=== PATIENT | female | born 1980 | race Caucasian/White ===

== ENCOUNTER 2023-02-20 14:44 | Inpatient (IN) | payer MEDICAID ==
[~2023-02-20] VITALS: Ht 188 cm; Wt 122.3 kg
--- NOTE | 2023-02-20 15:10 | NUR ---
PT ARRIVED DIRECT ADMIT FROM . PT ADMITTED FOR RIGHT FOOT OSTEOMYELITIS AND SURGICAL PROCEDURE TOMORROW. PT ALERT AND ORIENTED X 3, C/O PAIN IN RIGHT FOOT AT 4/10 ON PAIN SCALE. LUNGS CLEAR AND BS ACTIVE. PT AMBULATES WELL TO BATHROOM FOR TOILETING. PT ORIENTED TO ROOM AND CALL LIGHT. SAFETY MEASURES IN PLACE. WILL CONTIUE TO MONITOR PT.
[2023-02-20] MEDS ORDERED: OXYCODO-APAP1 TA2 PO (15:37)
[2023-02-20] MEDS ORDERED: PROTONIX40 M2 PO (15:38)
[2023-02-20] MEDS ORDERED: LISINOPRIL5 MG PO (15:38)
[2023-02-20 15:39] VITALS: BP 123/85
[2023-02-20] MEDS ORDERED: NOVOLIN R100 UNIT/1 SC (15:41)
[2023-02-20] MEDS ORDERED: LYRICA150 M1 (15:42)
[2023-02-20] MEDS ORDERED: NEURONTIN300 MG PO (15:43)
[2023-02-20] MEDS ORDERED: LEXAPRO20 MG PO (15:44)
[2023-02-20] MEDS ORDERED: ABILIFY10 MG PO (15:45)
[2023-02-20 15:46] LABS: BASO% 0.3 % (0-3); EOS% 1.2 % (0-8); HEMATOCRIT 43.7 % (37.0-47.0); HEMOGLOBIN 13.5 g/dl (12.0-16.0); IMMATURE GRANULOCYTES 0.2 % (0.0-5.0); MEAN CELL VOLUME 93.4 fL CALC (80.0-100.0); MEAN CORPUSCULAR HGB 28.8 pG CALC (26.0-32.0); MEAN CORPUSCULAR HGB CONC 30.9 g/dL CAL (32.0-36.0); MONO% 6.7 % (2-13); NEUT# 6.78 thou/uL (2.00-7.15); NEUT% 64.6 % (42-76); RED BLOOD COUNT 4.68 mill/uL (4.20-5.60); RED CELL DISTRI WIDTH 14.1 % (11.5-15.5)
[2023-02-20 16:00] LABS: ALBUMIN 4.6 g/dL (3.2-5.0); ALKALINE PHOSPHATASE 81 u/l (38-126); ANION GAP 10 (6-22 (CALC)); BILIRUBIN, TOTAL 0.3 mg/dL (0.02-1.3); BUN 17 mg/dL (7-17); BUN/CREATININE RATIO 17 (12-20 (CALC)); CARBON DIOXIDE 27 mmol/l (22-30); CHLORIDE 102 mmol/l (95-108); GFR FOR AFR.AMER. > 60 ML/MIN (>=60 (CALC)); GFR OTHER RACES 60 ML/MIN (>=60 (CALC)); POTASSIUM 3.9 mmol/l (3.5-5.1); SGOT/AST 21 u/l (14-36); SODIUM 136 mmol/l (137-146)
--- NOTE | 2023-02-20 16:00 | NUR ---
PT OUT OF ROOM TO RADIOLOGY FOR CXR. PT HAS NO CHANGE IN STATUS AT THIS TIME.
[2023-02-20 19:02] VITALS: BP 131/71
--- NOTE | 2023-02-20 20:00 | NUR ---
RECEIVED REPORT FROM NURSE JOS, PATIENT ALERT [facility]IN[facility] AMBULATORY, PATIENT SALINE LOCK NOTED ON LFA G 22SALINE LOCK PATENT FLUSHES WELL, LUNG SOUNDS CLEAR ACTIVE BOWELS OUNDS LBM 02/20, NOTED SCAB AT THE BOTTOM OF RT FOOT, SCANT AMOUNT PURULENT DRAINAGE NOTED WHEN SQUEEZE, CALL LIGHT IN REACH.
--- NOTE | 2023-02-21 | NUR ---
PATIENT ON NPO AT THIS TIME, FOOD AND FLUIDS REMOVED AT BEDSIDE.
[2023-02-21 04:01] VITALS: BP 109/59
--- NOTE | 2023-02-21 04:24 | NUR ---
PATIENT RESTING IN BED, REMAINS ON NPO, DENIES PAIN AT THIS TIME, CALL LIGHT IN REACH.
[2023-02-21 06:40] VITALS: BP 125/73
--- NOTE | 2023-02-21 08:00 | NUR ---
PT LAYING IN BED RESTING, ALERT AND ORIENTED X3. PT HAS C/O PAIN AT 5/10 ON PAIN SCALE, PER DR. MAHONEY HOLD PAIN MEDICATIONS UNTIL AFTER SURGERY, PT IS NPO AT THIS ITME. IV TO LFA CLEAN AND INTACT. PT AMBULATES WELL TO BATHROOM FOR TOILETING NEEDS. PT HAS CALL LIGHT WITHIN REACH
--- NOTE | 2023-02-21 10:30 | NUR ---
PT TRANSFERED DOWN TO OR BY OR NURSE. CONSENTS FOR PROCEDURE SIGNED.
--- NOTE | 2023-02-21 11:20 | NUR ---
patient voided x2 before going to surgery.
--- NOTE | 2023-02-21 13:43 | NUR ---
S: MILAGROS RIOJAS is a 42 F who presents with foot osteomyelitis. She has a history of . All medications in patient's chart were reviewed. O: VS: BP 129/70mmHg, P 73, RR 14,T 98.1 W 122.3kg, HT 74in, Scr= 1.0, CrCl= 100ml/min A: Wound culture is pending P: Vancomycin ordered for pharmacy to dose. Start Vancomycin 1250mg IV Q8H. Vancomycin trough is drawn before the 4th dose on 02/22/23 @ 1400. Vancomycin goal trough is between 10-20 mcg/ml. Pharmacy will follow and or advise on antibiotics use as needed.
--- NOTE | 2023-02-21 14:20 | NUR ---
PT BACK TO RM 268 FROM OR POST I&D OF RIGHT FOOT AND REMOVAL OF HARDWARE. PT HAS C/O MINIMAL PAIN AT 3/10 ON PAIN SCALE AT THIS TIME. IV SIRE TO LFA INTACT WITH NS INFUSING. DRESSING TO RIGHT FOOT CLEAN AND INTACT WITH NO DRAINAGE NOTED TO THE OUTER BANDAGE. PT HAS CALL LIGHT WITHIN REACH AND INSTRUCTED TO CALL NURSE FOR HELP WITH TOILETING. VS STABLE AND WILL CONTINUE TO MONITOR.
--- NOTE | 2023-02-21 16:20 | NUR ---
PT IN ROOM UP TO BATHROOM. PT HAS C/O PAIN IN BACK AND RIGHT FOOT, WILL MEDICATE WITH PRN MEDICATION. CALL LIGHT WITHIN REACH. BANDAGE TO RIGHT FOOT CLEAN AND INTACT.
[2023-02-21 19:00] VITALS: BP 124/56
[2023-02-21 19:18] VITALS: BP 124/56
--- NOTE | 2023-02-21 19:45 | NUR ---
PATIENT RESTING IN BED AT THIS TIME-AWAKE ALERT AND HAVING SEVERE RIGHT FOOT PAIN. POST-OP TODAY-TOO EARLY FOR PO PAIN MEDS AT THIS TIME AND CALL PLACED TO DR. LUZ. MESSAGE WAS LEFT AND PATIENT IS AWARE. DRESSING TO RIGHT FOOT INTACT AND SECURED WITH PONCE WRAP. CMS TO RIGHT TOES ARE WNL. ENCOURAGED PATIENT TO KEEP RIGHT FOOT ELEVATED ON PILLOWS. VERBALIZES UNDERSTANDING. IV SITE TO LEFT FOREARM INTACT. PATIENT STATES THAT SHE IS VOIDING WITHOUT ANY DIFFICULTY SINCE SURGERY. SAFETY PRECAUTIONS REINFORCED. CALL LIGHT IN REACH. WILL CONT TO MONITOR.
--- NOTE | 2023-02-21 21:00 | NUR ---
SPOKE WITH DR. LUZ AND NEW ORDER RECEIVED. MEDICATED PATIENT WITH DILAUDID 1MG IVP FOR SEVERE BREAKTHRU PAIN. MEDICATED WITH ROXICODONE 15MG PO FOR SEVERE PAIN. RESTING IN BED WITH RIGHT FOOT ELEVATED ON PILLOWS. APPETITE FOR DINNER WAS GOOD-TOLERATE WELL. PATIENT STATES THAT SHE DID HAVE A BM TONIGHT AND HER STOMACH FEELS BETTER. CALL LIGHT IN REACH. SAFETY PRECAUTIONS REINFORCED. WILL CONT TO MONITOR.
--- NOTE | 2023-02-22 00:30 | NUR ---
VANCO INFUSED ORDERED VIA LEFT FOREARM IV SITE. MEDICATED FOR SEVERE RIGHT FOOT POST-OP PAIN WITH DILAUDID ORDERED. RIGHT FOOT ELEVATED ON PILLOWS. DRESSING REMAINS CDI AND SECURED WITH PONCE WRAP. CALL LIGHT IN REACH. WILL CONT TO MONITOR.
--- NOTE | 2023-02-22 02:22 | NUR ---
PATIENT SITTING ON THE SIDE OF THE BED-MEDICATED FOR NAUSEA WITH ZOFRAN 4MG IVP ORDERED FOR NAUSEA. MEDICATED WITH BENEDRYL PER PATIENT REQUEST FOR SLEEP. CALL LIGHT IN REACH.WILL CONT TO MONITOR.
[2023-02-22 03:44] VITALS: BP 105/43
--- NOTE | 2023-02-22 04:51 | NUR ---
PATIENT POSITIONED ON LEFT SIDE WITH RIGHT LE ELEVATED ON PILLOWS. EYES ARE CLOSED AND RESPS ARE EVEN AND UNLABORED. CALL LIGHT IN REACH. WILL CONT TO MONITOR.
[2023-02-22 04:54] LABS: BASO% 0.2 % (0-3); EOS% 1.8 % (0-8); IMMATURE GRANULOCYTES 0.5 % (0.0-5.0); LYMPH% 34.1 % (15-41); MEAN CELL VOLUME 95.1 fL CALC (80.0-100.0); MEAN CORPUSCULAR HGB 28.5 pG CALC (26.0-32.0); MONO% 7.7 % (2-13); NEUT# 3.09 thou/uL (2.00-7.15); NEUT% 55.7 % (42-76); RED BLOOD COUNT 3.89 mill/uL (4.20-5.60)
[2023-02-22 05:03] LABS: ALKALINE PHOSPHATASE 63 u/l (38-126); ANION GAP 9 (6-22 (CALC)); BILIRUBIN, TOTAL 0.2 mg/dL (0.02-1.3); BUN 12 mg/dL (7-17); BUN/CREATININE RATIO 16 (12-20 (CALC)); CARBON DIOXIDE 26 mmol/l (22-30); CHLORIDE 106 mmol/l (95-108); CREATININE 0.7 mg/dL (0.5-1.0); GFR FOR AFR.AMER. > 60 ML/MIN (>=60 (CALC)); GFR OTHER RACES > 60 ML/MIN (>=60 (CALC)); POTASSIUM 4.2 mmol/l (3.5-5.1); SGOT/AST 21 u/l (14-36); SODIUM 137 mmol/l (137-146)
[2023-02-22 05:07] LABS: ALBUMIN 3.5 g/dL (3.2-5.0); TOTAL PROTEIN 6.1 g/dL (6.3-8.2)
[2023-02-22 05:11] LABS: HEMOGLOBIN 11.1 g/dl (12.0-16.0)
[2023-02-22 06:30] VITALS: BP 103/47
--- NOTE | 2023-02-22 08:00 | NUR ---
PT ALERT AMD ORIENTED X 3 , IN BED EATING BREAKFAST. IV SITE TO THE RFA SLIGHTLY RED AT SITE BUT FLUSHING WELL. PT AMBULATES WELL TO THE BATHROOM FOR ALL TOILETING NEEDS. DRESSING TO RIGHT FOOT CLEAN AND INTACT WITH NO DRAINAGE NOTED TO OUTER BANDAGE. RIGHT FOOT ELEVATED ON 2 PILLOWS AND WERAING BOOT WHEN OUT OF BED. PT HAS CALL LIGHT WITHIN REACH.
[2023-02-22 10:33] VITALS: BP 145/79
[2023-02-22] MEDS ORDERED: OXYCODO-APAP1 TA2 PO (11:48)
[2023-02-22] MEDS ORDERED: DOXYCYCLINE HY100 MG PO (11:56)
--- NOTE | 2023-02-22 12:00 | NUR ---
PT SITTING UP IN BED RESTING , EATING LUNCH. PT ALERT AND ORIENTED X3 DRESSED AND READY FOR DISCHARGE. IV TO LEFT FORARM REMOVED, WITH CATHERTER INTACT. NO CHANGE IN STATUS. CALLL LIGHT WITHIN REACH
--- NOTE | 2023-02-22 13:19 | NUR ---
Discharge instructions given. Patient verbalizes understanding of same. Discharged in stable condition via Wheelchair to Home with friend. All belongings sent with pt.
== END 2023-02-22 13:15 | disposition home or self-care (01) | DRG 504 ==
LOC: MS2 14:44
PROVIDERS: Nurse Practitioner Family; ADMIT Internal Medicine; ATTEND Internal Medicine
PROC: 0SPM04Z Removal of Internal Fixation Device from Right Metatarsal-Phalangeal Joint, Open Approach (ICD-10-PCS; principal; 2023-02-21)
PROC: 0QBN0ZZ Excision of Right Metatarsal, Open Approach (ICD-10-PCS; 2023-02-21)
PROC: 0QBQ0ZZ Excision of Right Toe Phalanx, Open Approach (ICD-10-PCS; 2023-02-21)
DX: T84.7XXA Infection and inflammatory reaction due to other internal orthopedic prosthetic devices, implants and grafts, initial encounter (principal); L03.115 Cellulitis of right lower limb; M86.671 Other chronic osteomyelitis, right ankle and foot; T84.418A Breakdown (mechanical) of other internal orthopedic devices, implants and grafts, initial encounter; E11.42 Type 2 diabetes mellitus with diabetic polyneuropathy; M20.21 Hallux rigidus, right foot; I10 Essential (primary) hypertension; M48.00 Spinal stenosis, site unspecified; M79.7 Fibromyalgia; T88.7XXA Unspecified adverse effect of drug or medicament, initial encounter; T36.8X5A Adverse effect of other systemic antibiotics, initial encounter; Y83.1 Surgical operation with implant of artificial internal device as the cause of abnormal reaction of the patient, or of later complication, without mention of misadventure at the time of the procedure; Z79.4 Long term (current) use of insulin; Z88.0 Allergy status to penicillin; Z20.822 Contact with and (suspected) exposure to COVID-19
CPT/HCPCS: J0131; J3370

== ENCOUNTER 2024-04-04 13:24 | Inpatient (IN) | payer MEDICAID ==
[~2024-04-04] VITALS: Ht 188 cm; Wt 116.8 kg
[~2024-04-04 13:24] MED LIST: ABILIFY10 MG PO; DOXYCYCLINE HY100 MG PO; LEXAPRO20 MG PO; LISINOPRIL5 MG PO; LYRICA150 M1; NEURONTIN300 MG PO; NOVOLIN R100 UNIT/1 SC; OXYCODO-APAP1 TA2 PO; PROTONIX40 M2 PO
--- NOTE | 2024-04-04 14:00 | NUR ---
PATIENT DIRECT ADMIT FOR RIGHT ROOT CELLULITIES. PATIENT ARRIVED TO FLOOR VIA WHEELCHAIR. PATIENT A/OX4, PATIENT C/O PAIN TO RIGHT FOOT, PATIENT NO S/S RESP DISTRESS PATIENT ON ROOM AIR. PATIENT WOUND TO RIGHT FOOT HAD TRACE EDEMA AND REDDNESS. PATIENT HOME MED REVIEWED NOTIFIED. PATIENT VOIDED AND LAST BM TODAY
[2024-04-04 14:02] VITALS: BP 121/65
[2024-04-04 14:58] LABS: ALKALINE PHOSPHATASE 62 u/l (38-126); ANION GAP 7 (6-22 (CALC)); BUN 10 mg/dL (7-17); BUN/CREATININE RATIO 13 (12-20 (CALC)); CARBON DIOXIDE 23 mmol/l (22-30); CHLORIDE 109 mmol/l (95-108); CREATININE 0.8 mg/dL (0.5-1.0); ESTIMATED GFR 93 ML/MIN (>=90 (CALC)); POTASSIUM 4.2 mmol/l (3.5-5.1); SGOT/AST 20 u/l (14-36); SODIUM 135 mmol/l (137-146); TOTAL PROTEIN 7.2 g/dL (6.3-8.2)
[2024-04-04 15:07] VITALS: BP 121/65
[2024-04-04 15:14] LABS: BETA-HCG, QUANT(RESULT NUMBER) <2 mIU/mL
[2024-04-04] MEDS ORDERED: ACETAMINOPHEN 325 MG/TAB PO PRN (15:30)
[2024-04-04] MEDS ORDERED: SODIUM CHLORIDE 0.9% 1,000 ML IV PRN (15:30)
[2024-04-04] MEDS ORDERED: MAGNESIUM HYDROXIDE 30 ML UDC PO PRN (15:30)
[2024-04-04 15:31] LABS: BILIRUBIN, TOTAL 0.4 mg/dL (0.02-1.3)
[2024-04-04] MEDS ORDERED: DEXTROSE 250 ML IV PRN ×2 (15:45→20:00)
[2024-04-04] MEDS ORDERED: CLARIFY DOSE PO PRN (15:45)
[2024-04-04] MEDS ORDERED: oxyCODONE 10MG/APAP 325 MG 1 COMBO TAB PO PRN (15:50)
[2024-04-04] MEDS ORDERED: BACLOFEN10 MG PO (16:32)
[2024-04-04] MEDS ORDERED: BACLOFEN 10 MG/TAB PO PRN (17:10)
[2024-04-04] MEDS ORDERED: INSULIN REGULAR (HUMAN) 100 UNIT/ML INJ SC SCH (17:30)
[2024-04-04] MEDS ORDERED: MORPHINE SULFATE 4 MG/ML VIAL IV PRN (19:55)
[2024-04-04] MEDS ORDERED: VANCOMYCIN HCL 1 GM in SODIUM CHLORIDE 0.9% 250 ML IV SCH (20:00)
--- NOTE | 2024-04-04 20:00 | NUR ---
RECEIVED REPORT FROM NURSE HOLLIS. PATIENT SITTING IN BED, C/O PAIN ON RT FOOT, WILL NOTIFY ,PATIENT IV ON LFA G 20 PATENT FLUSHES WELL, PATINET DRESSING ON RT FOOT CDI, PATIENT EDUCATED NPO AFTER MIDNIGHT VERBALIZED UNDERSTATING.
[2024-04-04] MEDS ORDERED: Zaleplon 5 MG/CAP PO PRN (20:05)
[2024-04-04] MEDS ORDERED: HYDROmorphone HCL 2 MG/AMP IV PRN (20:10)
[2024-04-04] MEDS ORDERED: PREGABALIN 50 MG/CAP PO SCH (21:00)
[2024-04-04] MEDS ORDERED: INSULIN LISPRO 100 UNITS/ML ML SC SCH (21:00)
[2024-04-04] MEDS ORDERED: GABAPENTIN 300 MG/CAP PO SCH (21:00)
[2024-04-04 22:03] VITALS: BP 106/71
[2024-04-05] VITALS (9 sets, daily range): BP systolic 96–113; BP diastolic 36–51
--- NOTE | 2024-04-05 | NUR ---
FOOD AND FLUIDS REMOVED, PATIENT NOPW NPO, PATIENT VERBALIZED UNDERSTANDING, PATINET NOT IN DISTRESS, CALL LIGHT IN REACHED.
--- NOTE | 2024-04-05 04:15 | NUR ---
PATIENT RESTING WITH EYES CLOSED, TECH IN ROOM, PATINET NOT IN DISTRESS, CALL LIGHT IN REACHED, REMAINS NPO.
[2024-04-05 05:12] LABS: CHOLESTEROL HDL RATIO 4.9 (<4.4 (CALC)); CREATININE 0.7 mg/dL (0.5-1.0); MAGNESIUM 1.7 mg/dL (1.6-2.3)
[2024-04-05 05:13] LABS: BASO% 0.3 % (0-3); EOS% 2.4 % (0-8); HEMATOCRIT 35.5 % (37.0-47.0); HEMOGLOBIN 10.7 g/dl (12.0-16.0); IMMATURE GRANULOCYTES 0.3 % (0.0-5.0); LYMPH% 41.4 % (15-41); MEAN CELL VOLUME 88.3 fL CALC (80.0-100.0); MEAN CORPUSCULAR HGB 26.6 pG CALC (26.0-32.0); MEAN CORPUSCULAR HGB CONC 30.1 g/dL CAL (32.0-36.0); MONO% 7.1 % (2-13); NEUT# 3.05 thou/uL (2.00-7.15); NEUT% 48.5 % (42-76); RED BLOOD COUNT 4.02 mill/uL (4.20-5.60); RED CELL DISTRI WIDTH 18.1 % (11.5-15.5)
--- NOTE | 2024-04-05 07:00 | NUR ---
PT RESTING IN BED UPON ENTERIGN ROOM. ASSESSMENT COPLETED. PT A&OX3. IV INTACT/FLUSHED. PT NPO FOR PROCEDURE 04/05/24. GLUCOSE 89. NO COVERAGED NEEDED PER SLIDING SCALE. RIGHT FOOT +1 EDEMA. PT STATES PAIN MEDICATION PROVIDED WAS EFFECTIVE. FALL/SAFEY PRECAUTION I PLACE. CALL LIGHT WITHIN REACH
--- NOTE | 2024-04-05 07:16 | NUR ---
PATIENT PLACED ON GOWN, AND PATIENT VOIDED, V/S OBTAINED, REPORT GIVEN TO OR NURSE, PATIENT TRANSPORTED VIA BED. PICKED UP AT [id number].
--- NOTE | 2024-04-05 07:17 | NUR ---
PT TRANSPORTED TO OR WITH BEEF SPLITTERLAURA BARRETT PT LEFT VIA STRETCHER
[2024-04-05] MEDS ORDERED: SODIUM CHLORIDE 0.9% 10 ML SYR ONE (07:28)
[2024-04-05] MEDS ORDERED: SODIUM CHLORIDE 0.9% 1,000 ML IV ONE (07:28)
[2024-04-05] MEDS ORDERED: BUPIVACAINE HCL PF 0.5% 30 ML VIAL ONE (07:40)
[2024-04-05] MEDS ORDERED: FAMOTIDINE 10MG/ML 2ML SDV IV ONE (07:49)
[2024-04-05] MEDS ORDERED: SCOPOLAMINE 1.5 MG DIS TD ONE (07:51)
--- NOTE | 2024-04-05 08:10 | NUR ---
S: MILAGROS RIOJAS is a 43 F who presents with cellulitis of the right foot. She has a history of hallux rigidus. All medications in patient's chart were reviewed. O: VS: BP 104/45, P 50, RR 15,T 97.4 F W 116.8 kg, HT 187.96 cm, Scr=0.7 mg/dL,CrCl= 149.5 ml/min A: Wound smear culture is pending. P: Patient is on no abx. Vancomycin ordered for pharmacy to dose. Start Vancomycin 1,250 mg IV Q8H Vancomycin trough is drawn before the 4th dose on 04/06/24 at 1030. Vancomycin goal trough is between 10-20 mcg/ml. Pharmacy will follow and or advise on antibiotics use as needed.
[2024-04-05] MEDS ORDERED: PANTOPRAZOLE SODIUM Sesquihydr 40 MG/TAB PO SCH (09:00)
[2024-04-05] MEDS ORDERED: ESCITALOPRAM 10 MG/TAB PO SCH (09:00)
[2024-04-05] MEDS ORDERED: LISINOPRIL 5 MG/TAB PO SCH (09:00)
[2024-04-05] MEDS ORDERED: BACITRACIN BASE 15 GM TUBE ONE (09:24)
[2024-04-05] MEDS ORDERED: HYDROmorphone HCL 2 MG/AMP ONE (09:57)
--- NOTE | 2024-04-05 10:45 | NUR ---
PT ARRIVED VIA STRETCHER WITH ASSISTANT PROFESSOR OF BUSINESS PT ABLE TO PIVOT TO BED VIA 1X ASSIST. PT ON O2 AT 3L FROM OR REORIENATATED PT TO ROOM AND CALL LICONA YSTEM. FALL/SAFTEY PRECAUTION IN PLACE. CALL LIGHT WITHIN REACH
[2024-04-05] MEDS ORDERED: VANCOMYCIN HCL 1,250 MG in SODIUM CHLORIDE 0.9% 225 ML IV SCH (11:00)
[2024-04-05] MEDS ORDERED: ePHEDrine SULFATE 50 MG/ML AMP IV ONE (11:45)
[2024-04-05] MEDS ORDERED: LIDOCAINE HCL 2% 2ML SDV IV ONE (11:45)
[2024-04-05] MEDS ORDERED: SODIUM CHLORIDE 0.9% 1,000 ML BAG IV ONE (11:45)
[2024-04-05] MEDS ORDERED: DiphenhydrAMINE HCL 50 MG/ML SDV IV ONE (11:45)
[2024-04-05] MEDS ORDERED: ONDANSETRON HCl 4 MG/2 ML SDV IV ONE (11:45)
[2024-04-05] MEDS ORDERED: DEXAMETHASONE SODIUM PHOSPHATE PF 10 MG/ML SDV IV ONE (11:45)
[2024-04-05] MEDS ORDERED: PROPOFOL 200 MG/20 ML VIAL IV ONE (11:45)
[2024-04-05] MEDS ORDERED: GLYCOPYRROLATE 0.2 MG/ML IV ONE (11:45)
[2024-04-05] MEDS ORDERED: MIDAZOLAM HCL 2 MG/2 ML VIAL IV ONE (11:45)
[2024-04-05] MEDS ORDERED: ACETAMINOPHEN 1,000 MG/100 ML VIAL IV ONE (11:45)
[2024-04-05] MEDS ORDERED: MORPHINE SULFATE 4 MG/ML VIAL IV ONE (11:45)
[2024-04-05] MEDS ORDERED: KETOROLAC TROMETHAMINE 30 MG/ML SDV IV ONE (11:45)
--- NOTE | 2024-04-05 12:47 | NUR ---
MEDICATED FOR PAIN. PER PAIN SCALE. FALL/SAFTEY PRECAUTION IN PLACE. CALLLIGHT WITHIN REACH
[2024-04-05] MEDS ORDERED: ONDANSETRON HCl 4 MG/2 ML SDV IV PRN (13:00)
[2024-04-05] MEDS ORDERED: HYDROmorphone HCL 2 MG/AMP IV PRN (17:00)
--- NOTE | 2024-04-05 17:26 | NUR ---
MEDICATED FOR PAIN. PT STATES NOT WORKING, NOTIFIED JESS TO PAIN MED SEE EMAR
--- NOTE | 2024-04-05 19:00 | NUR ---
PATIENT OBSERVED SITTING ON SIDE OF BED. ALERT AND ABLE TO MAKE NEEDS KNOWN. ASSESSMENT COMPLETE. NO DISTRESS NOTED. PATIENT DOES COMPLAIN OF PAIN. HAS BEEN RECEIVING PER PAIN MEDICATIONS. DENIES NEEDING ANYTHING AT THIS TIME. BED REMAINS IN LOW POSITION. CALL LICONA IN REACH.
[2024-04-05] MEDS ORDERED: VANCOMYCIN HCL 1 GM in SODIUM CHLORIDE 0.9% 250 ML IV SCH (20:00)
[2024-04-05] MEDS ORDERED: SENNOSIDES-Docusate Sodium 1 COMBO TAB PO SCH (21:00)
--- NOTE | 2024-04-06 | NUR ---
PATIENT APPEARS TO BE LAYING ON HER RIGHT SIDE. NO FURTHER COMPLAINTS OF PAIN AT THIS TIME. DENIES NEEDING ANYTHING AT THIS TIME. BED REMAINS IN LOWEST POSITION. CALL LICONA AND BELONGINGS IN REACH.
[2024-04-06 03:40] VITALS: BP 110/56
--- NOTE | 2024-04-06 03:48 | NUR ---
PATIENT REMAINS RESTING IN BED. SHE SEEMS TO GET HERSELF WORKED UP THEN RECOVERS QUICKLY AND APOLOGIZES MULTIPLE TIMES. I EXPLAINED TO PATIENT WE ARE HERE TO HELP WITH HER CARE. PATIENT VERBALIZED UNDERSTANDING. DENIES NEEDING ANYTHING AT THIS TIME.
[2024-04-06 04:00] VITALS: BP 110/56
[2024-04-06 06:43] LABS: BASO% 0.2 % (0-3); EOS% 0.5 % (0-8); HEMATOCRIT 33.7 % (37.0-47.0); HEMOGLOBIN 10.3 g/dl (12.0-16.0); IMMATURE GRANULOCYTES 0.2 % (0.0-5.0); LYMPH% 26.5 % (15-41); MEAN CELL VOLUME 89.4 fL CALC (80.0-100.0); MEAN CORPUSCULAR HGB 27.3 pG CALC (26.0-32.0); MEAN CORPUSCULAR HGB CONC 30.6 g/dL CAL (32.0-36.0); MONO% 6.1 % (2-13); NEUT# 5.35 thou/uL (2.00-7.15); NEUT% 66.5 % (42-76); RED BLOOD COUNT 3.77 mill/uL (4.20-5.60); RED CELL DISTRI WIDTH 18.2 % (11.5-15.5)
[2024-04-06 06:59] VITALS: BP 112/46
[2024-04-06 07:04] LABS: CREATININE 0.8 mg/dL (0.5-1.0); MAGNESIUM 1.7 mg/dL (1.6-2.3); POTASSIUM 4.5 mmol/l (3.5-5.1)
--- NOTE | 2024-04-06 07:30 | NUR ---
PT LAYING IN BED RESTING WITH HER EYES OPENED, PT A&O X 3, PUPILS PERRL, LUNG SOUNDS CLEAR, ABD SOFT AND DISTRENDED, STRONG RADIAL AND PEDAL PULSES, 20G LFA IV UNABLE TO FLUSH, IV FLUIDS STOPPED, WILL REMOVE IV AND START A NEW IV, SAFETY MEASURES REINFORCED, CALL LICONA WITHIN REACH
--- NOTE | 2024-04-06 11:00 | NUR ---
PT LAYING IN BED RESTING WITH HER EYES OPEN, PT DENIES ANY NEEDS AT THIS TIME, CALL LICONA WITHIN REACH
--- NOTE | 2024-04-06 12:12 | NUR ---
PT TO RADIOLOGY VIA WC FOR PICC LINE
--- NOTE | 2024-04-06 12:45 | NUR ---
PT RETURNED TO UNIT FROM RADIOLOGY VIA WC, PT AMBULATED FROM WC TO BED, PT TOLERATED WELL, SAFETY MEASURES REINFORCED, CALL LICONA WITHIN REACH
--- NOTE | 2024-04-06 13:33 | NUR ---
S: MILAGROS RIOJAS is a 44 F who presents with cellulitis. She has a history of diabetes and hypertension. All medications in patient's chart were reviewed. O: VS: BP 112/46, P 51, RR 18, T 97.3 F W 116.8 kg, HT 188 cm, Scr=0.8,CrCl= 129.4 ml/min Vancomycin Trough: 12 mcg/ml A: Wound culture is pending. Vancomycin trough within goal therapeutic range of 10-15. No change in dose warranted. P: Patient is on Vancomycin 1,250 mg IV Q8H. Vancomycin ordered for pharmacy to dose. Continue Vancomycin 1,250 mg IV Q8H. Vancomycin trough is drawn before the dose on 04/06/24 at 1030. Vancomycin goal trough is between 10-15 mcg/ml. Pharmacy will follow and or advise on antibiotics use as needed.
[2024-04-06 14:42] VITALS: BP 117/64
--- NOTE | 2024-04-06 14:45 | NUR ---
PT R FOOT BLEEDING THROUGH DRESSING, DRESSING REMOVED AND NEW DRESSING APPLIED, WOUND FREE FROM AND FRESH BLEEDING, PT TOLERATED WELL, SAFETY MEASURES REINFORCED, CALL LICONA WITHIN REACH
--- NOTE | 2024-04-06 16:34 | NUR ---
VISITORS AT BEDSIDE, PT SITTING UP IN THE BED, NO SIGNS OF DISTRESS, CALL LICONA WITHIN REACH
--- NOTE | 2024-04-06 17:55 | NUR ---
PT LAYING IN BED RESTING WITH EYES CLOSED, AROUSES EASILY TO VERBAL STIMULI, CALL LICONA WITHIN REACH
[2024-04-06 18:30] VITALS: BP 110/57
[2024-04-06 18:41] VITALS: BP 110/57
--- NOTE | 2024-04-06 19:38 | NUR ---
PATIENT REQUESTED HER NIGHT MEDICATION EARLY STATED REALLY TIRED AND WANTED TO SLEEP EARLY.
--- NOTE | 2024-04-06 20:00 | NUR ---
RECEIVED REPORT FROM NURSE COLON, PATIENT SITTING IN BED TALKING ON HER PHONE, ONGOING IV ON LYLY PICC NS @ 100CC/HR INFUSING WELL, IV ON LFA G 22 PATENT FLUSHES WELL, PATIENT NOT IN DISTRESS, DRESSING ON RT FOOT CDI, PATIENT LUNFG SOUNDS CLEAR NOT IN DISTRESS, CALL LIGHT IN REACHED.
--- NOTE | 2024-04-06 23:56 | NUR ---
PATINET C/O PAIN ON OPERATIVE FOOT PRN PERCOCET GIVEN WILL REEVALUATE.
[2024-04-07] MEDS ORDERED: SODIUM CHLORIDE 0.9% 10 ML SYR IV PRN (03:40)
[2024-04-07] MEDS ORDERED: HEPARIN SODIUM FLUSH (PORCINE) 10 UNIT/ML 5ML SYR IV PRN (03:40)
[2024-04-07 04:00] VITALS: BP 121/68
[2024-04-07 04:35] VITALS: BP 121/68
--- NOTE | 2024-04-07 05:31 | NUR ---
SKYLER REQUESTED REMOVAL ON IV LINE IN LFA R/T PAIN ON SITE, CATHETER INTACT.CALL LIGHT IN REACHED.
[2024-04-07 05:45] LABS: BASO% 0.3 % (0-3); EOS% 1.2 % (0-8); HEMATOCRIT 32.1 % (37.0-47.0); HEMOGLOBIN 9.7 g/dl (12.0-16.0); IMMATURE GRANULOCYTES 0.2 % (0.0-5.0); MEAN CELL VOLUME 88.7 fL CALC (80.0-100.0); MEAN CORPUSCULAR HGB 26.8 pG CALC (26.0-32.0); MEAN CORPUSCULAR HGB CONC 30.2 g/dL CAL (32.0-36.0); MONO% 5.6 % (2-13); NEUT# 2.69 thou/uL (2.00-7.15); NEUT% 46.7 % (42-76); RED BLOOD COUNT 3.62 mill/uL (4.20-5.60); RED CELL DISTRI WIDTH 18.3 % (11.5-15.5)
[2024-04-07 05:52] LABS: CREATININE 0.7 mg/dL (0.5-1.0); MAGNESIUM 1.6 mg/dL (1.6-2.3); POTASSIUM 4.3 mmol/l (3.5-5.1)
[2024-04-07 06:57] VITALS: BP 102/70
--- NOTE | 2024-04-07 07:52 | NUR ---
PATIENT A/O X3; SITTING UP ON SIDE OF BED; ROOM AIR; BREATHING UNLABORED AND EVEN; DENIED ANY N/D/V AT THIS TIME; STATED PAIN IN HER FOOT 04/07; MEDICATED WITH DULIAID; NO S/S OF DISTRESS; BSC NEXT TO BED; PICC IN RIGHT ARM CLEAN AND INTACT RUNNING WITH NS @100; GLUCOSE IS 95; NO COVERAGE NEEDED; CALL LIGHT WITHIN REACH,VERBALIZED UNDERSTANDING ON HOW TO USE; PERSONAL ITEMS WITHIN REACH, BED IN LOWEST POSTION
--- NOTE | 2024-04-07 09:34 | NUR ---
AT THIS TIME PONCE WRAPPING CLEAR OF ANY DRAINAGE
[2024-04-07] MEDS ORDERED: oxyCODONE 5MG/ ACETAMINOPHEN 325MG TAB PO PRN (10:05)
--- NOTE | 2024-04-07 11:20 | NUR ---
S: MILAGROS RIOJAS is a 44 F who presents with cellulitis/osteomyelitis. She has a history of diabetes and hypertension. All medications in patient's chart were reviewed. O: VS: BP 136/70 mmhg, P 56 bpm, RR 20 bpm,T 97 F W 116.8 kg, HT 188 cm, Scr= 0.7 ,CrCl= 147.9 ml/min Vancomycin Trough on 04/07/24 = 15 mcg/ml A: Wound culture shows no growth after 48 hours. P: Patient is on Vancomycin 1250 mg IV Q8H. Vancomycin ordered for pharmacy to dose. Continue Vancomycin 1250 mg IV Q8H. Vancomycin trough is drawn on 04/09/24 at 1030. Vancomycin goal trough is between 10-15 mcg/ml. Pharmacy will follow and or advise on antibiotics use as needed.
--- NOTE | 2024-04-07 12:15 | NUR ---
PATIENT RESTING IN BED ALSEEP; ROOM AIR; BREATHING UNLABORED AND EVEN; DENIED ANY PAIN AT THIS TIEM; DENIED NEEDING ANYTHING;PICC WORKING WITH NS RUNNIG @100; NO S/S OF DISTRESS AT THIS TIME; PATIENT LAYING ON HER LEFT SIDE AT THIS TIME; CALL LIGHT WITHIN REACH,VERBALIZED UNDERSTANDING ON HOW TO USE, PERSONAL ITEMS WITHIN REACH, BED IN LOWEST POSTION
[2024-04-07 16:05] VITALS: BP 119/66
--- NOTE | 2024-04-07 16:09 | NUR ---
PATIENT A/O X3; ROOM AIR; BREATHING UNLABORED AND EVEN; DENIED ANY PAIN; DENIED ANY N/D/V AT THIS TIME; NO S/S IF DISTRESS; DRESSING ON RIGHT FOOT CLEAN AND INTACT; PICC IN RIGHT ARM CLEAN AND INTACT SALINE RUNNING WITH NS @100; PATEINT ON LEFT SIDE IN BED; BSC NEXT TO BED; CALL LIGHT WITHIN REACH,VERBALIZED UNDERSTANDING ONHOW TO USE, PERSONAL ITEMS WITHIN REACH, BED IN LOWEST POSTION
[2024-04-07 18:30] VITALS: BP 131/71
[2024-04-07 18:40] VITALS: BP 131/71
--- NOTE | 2024-04-07 20:27 | NUR ---
RECEIVED REPORT FROM NURSE DULCE, PATIENT RESTING IN BED, STATED TIRED READY FOR SLEEP, C/O PAIN ON OPERATIVE FOOT PS 04/07, MEDICATED WITH PERCOCET, IV ON LYLY PICC PATENT FLSUHES WELL, BREATHING UNLABORED CALL LIGHT IN RACHED.
--- NOTE | 2024-04-08 01:07 | NUR ---
PATINET C/O PAIN ON RT FOOT PS 10/10 PRN DILAUDID GIVEN, PATIENT IS NAUSEOUS ALSO ZOFRAN GIVEN.
--- NOTE | 2024-04-08 03:49 | NUR ---
PATIENT ONGOING VANCOMYCIN, PATINET C/O PAIN ON RT FOOT, PRN PAIN MEDICATION GIVEN, CALL LIGT IN REACHED.
[2024-04-08 04:00] VITALS: BP 123/54
[2024-04-08 04:04] VITALS: BP 123/54
[2024-04-08 04:18] LABS: BASO% 0.3 % (0-3); EOS% 1.6 % (0-8); HEMATOCRIT 34.9 % (37.0-47.0); HEMOGLOBIN 10.6 g/dl (12.0-16.0); IMMATURE GRANULOCYTES 0.6 % (0.0-5.0); LYMPH% 35.2 % (15-41); MEAN CELL VOLUME 88.1 fL CALC (80.0-100.0); MEAN CORPUSCULAR HGB 26.8 pG CALC (26.0-32.0); MEAN CORPUSCULAR HGB CONC 30.4 g/dL CAL (32.0-36.0); MONO% 6.4 % (2-13); NEUT# 3.59 thou/uL (2.00-7.15); NEUT% 55.9 % (42-76); RED BLOOD COUNT 3.96 mill/uL (4.20-5.60)
[2024-04-08 04:37] LABS: CREATININE 0.7 mg/dL (0.5-1.0); POTASSIUM 4.5 mmol/l (3.5-5.1)
[2024-04-08 07:06] VITALS: BP 153/68
--- NOTE | 2024-04-08 07:43 | NUR ---
BEDSIDE REPORT RECEIVED FORM OFF GOING NURSE. PATIENT ASLEEP BUT EASILY AROUSED. PATIENT SEEN BY DR. LUZ AND HE CHANGED THE RIGHT FOOT DRESSING. PATIENT C/O MIGRAINE HEADACHE. PATIENT MADE AWARE THAT SHE WILL BE MEDICATED FOR THIS WITH HER MORNIGN MEDICATIONS. PATIENT REQUESTING DOOR CLOSED AND LIGHTS OFF IN ROOM. SAFETY MEASURES IN PLACE. IV FLUIDS IN PLACE. CALL LIGHT WITHIN REACH.
[2024-04-08] MEDS ORDERED: BUTALBITAL-APAP-CAFFEINE 50-325-40 TAB PO SCH (08:00)
--- NOTE | 2024-04-08 09:31 | NUR ---
PATIENT MEDICATED FOR PAIN. UP TO BATHROOM WITH PARTIAL WEIGHT BEARING TO RIGHT FOOT. STATES THAT HEADACHE "EASED UP". NO FURTHER CONCERN VOICED AT THIS TIME. SAFETY MEASURES IN PLACE.
--- NOTE | 2024-04-08 12:22 | NUR ---
PATIENT MEDICATED FOR PAIN PER REQUEST. RESPIRATIONS EVEN AND UNLABORED ON ROOM AIR. ATE HALF OF LUNCH AND REQUESTED ZOFRAN FOR NAUSEA WHICH WAS ADMINISTERED. CURRENTLY RESTING IN BED. CALL LIGHT WITHIN REACH.
[2024-04-08] MEDS ORDERED: DAPTOMYCIN/SODI1 IN2 IV (14:25)
[2024-04-08] MEDS ORDERED: PROMETHAZINE HCL 25 MG/ML AMP IV ONE (14:30)
[2024-04-08] MEDS ORDERED: PERCOCET 10/31 COMBO PO (14:32)
--- NOTE | 2024-04-08 14:34 | NUR ---
PATIENT SEEN BY INFECTIOUS DISEASE MD VIA TELEHEALTH. PATIENT ALERT/ORIENTED AND ABLE TO VERBALIZE UNDERSTANDING OF VISIT. C/O PAIN FOLLOWING VISIT AND MEDICATED FOR PAIN PER MD ORDER. NO CONCERNC VOICED AT THIS TIME. CALL LIGHT WITHIN REACH.
[2024-04-08] MEDS ORDERED: ZOFRAN4 MG/TAB PO (14:41)
[2024-04-08] MEDS ORDERED: ZOLOFT100 MG PO (14:42)
[2024-04-08] MEDS ORDERED: LEVOFLOXACIN750 MG PO (14:44)
[2024-04-08 14:45] VITALS: BP 125/54
[2024-04-08] MEDS ORDERED: PROMETHAZINE HCL 25 MG/ML AMP ONE (14:51)
[2024-04-08] MEDS ORDERED: SODIUM CHLORIDE 0.9% 50 ML IV ONE (14:52)
[2024-04-08] MEDS ORDERED: PROMETHAZINE HCL 12.5 MG in SODIUM CHLORIDE 0.9% 50 ML IV SCH (15:00)
[2024-04-08 15:43] VITALS: BP 125/54
[2024-04-08] MEDS ORDERED: levoFLOXacin hemihydrate 250 MG/TAB PO SCH (16:00)
--- NOTE | 2024-04-08 16:09 | NUR ---
DISCHARGE INSTRUCTIONS GIVEN TO PATIENT WITH MOTHER AT BEDSIDE. PATIENT ALERT AND ORIENTED X4 AND ABLE TO VERBALIZE UNERSTANDING OF INSTRUCTIONS. NO C/O PAIN OR DISCOMFORT AT THIS TIME. DRESSING TO RIGHT FOOT CLEAN, DRY AND INTACT.
--- NOTE | 2024-04-10 09:39 | NUR ---
Discharge follow up call completed 04/10/23. Pt states she is doing well and has had no issues since discharge. Patient has her prescribed medication and is taking as directed. Pt has supplies for dressing changes coming to her home today. Patient plans to contact her PCP o Friday to schedule a follow up appointment. No needs or concerns verbalized at this time. Pt expressed her gratitude for the kindness and care she was shown during her hospitalization.
== END 2024-04-08 16:20 | disposition home health service (06) | DRG 496 ==
LOC: MS2 13:24
PROVIDERS: ADMIT Podiatrist Foot & Ankle Surgery; ATTEND Student in an Organized Health Care Education/Training Program
PROC: 0QPN04Z Removal of Internal Fixation Device from Right Metatarsal, Open Approach (ICD-10-PCS; principal; 2024-04-05)
PROC: 0QBN0ZZ Excision of Right Metatarsal, Open Approach (ICD-10-PCS; 2024-04-05)
PROC: 0QBQ0ZZ Excision of Right Toe Phalanx, Open Approach (ICD-10-PCS; 2024-04-05)
PROC: 0Q8N0ZZ Division of Right Metatarsal, Open Approach (ICD-10-PCS; 2024-04-05)
PROC: 0L8N3ZZ Division of Right Lower Leg Tendon, Percutaneous Approach (ICD-10-PCS; 2024-04-05)
PROC: 0HTRXZZ Resection of Toe Nail, External Approach (ICD-10-PCS; 2024-04-05)
PROC: 02HV33Z Insertion of Infusion Device into Superior Vena Cava, Percutaneous Approach (ICD-10-PCS; 2024-04-06)
PROC: B518ZZA Fluoroscopy of Superior Vena Cava, Guidance (ICD-10-PCS; 2024-04-06)
DX: T84.7XXA Infection and inflammatory reaction due to other internal orthopedic prosthetic devices, implants and grafts, initial encounter (principal); L02.611 Cutaneous abscess of right foot; L03.115 Cellulitis of right lower limb; M96.0 Pseudarthrosis after fusion or arthrodesis; M86.8X7 Other osteomyelitis, ankle and foot; T84.213A Breakdown (mechanical) of internal fixation device of bones of foot and toes, initial encounter; E11.69 Type 2 diabetes mellitus with other specified complication; T84.84XA Pain due to internal orthopedic prosthetic devices, implants and grafts, initial encounter; M20.21 Hallux rigidus, right foot; L60.0 Ingrowing nail; M67.01 Short Achilles tendon (acquired), right ankle; E11.42 Type 2 diabetes mellitus with diabetic polyneuropathy; I10 Essential (primary) hypertension; Y83.1 Surgical operation with implant of artificial internal device as the cause of abnormal reaction of the patient, or of later complication, without mention of misadventure at the time of the procedure; Z88.0 Allergy status to penicillin; Z79.4 Long term (current) use of insulin
CPT/HCPCS: J0131; J0878; J1100; J3370